=== PATIENT | male | born 1995 | race Caucasian/White ===

== ENCOUNTER 2024-03-16 16:04 | Emergency (ER) | payer BC, OTHER ==
[~2024-03-16] VITALS: Ht 188 cm; Wt 90.7 kg
[2024-03-16 16:10] VITALS: BP 123/74; TEMP 98.3; O2SAT 99
== END 2024-03-16 18:01 | disposition home or self-care (01) ==
LOC: ER 16:09
DX: S93.491A Sprain of other ligament of right ankle, initial encounter (principal); Z60.2 Problems related to living alone; X58.XXXA Exposure to other specified factors, initial encounter; Y93.89 Activity, other specified; Y92.89 Other specified places as the place of occurrence of the external cause; Y99.8 Other external cause status
CPT/HCPCS: 73610-TC

== ENCOUNTER 2024-03-22 11:40 | Emergency (ER) | payer BC, OTHER ==
[~2024-03-22] VITALS: Ht 188 cm; Wt 91.2 kg
[2024-03-22 11:46] VITALS: BP 137/84; TEMP 98.8; O2SAT 100
[2024-03-22] MEDS: IBUPROFEN 600 MG TABLET PO ONE (12:00)
[2024-03-22] MEDS ORDERED: IBUPROFEN 600 MG TABLET ONE (12:27)
== END 2024-03-22 13:32 | disposition home or self-care (01) ==
LOC: ER 12:04
DX: S93.401A Sprain of unspecified ligament of right ankle, initial encounter (principal); Z60.2 Problems related to living alone; X50.1XXA Overexertion from prolonged static or awkward postures, initial encounter; Y93.89 Activity, other specified; Y92.89 Other specified places as the place of occurrence of the external cause; Y99.8 Other external cause status
CPT/HCPCS: 73610-TC